=== PATIENT | female | born 1995 | race Caucasian/White ===

== ENCOUNTER 2016-09-01 15:01 | Emergency (ER) | payer BC ==
[2016-09-01 15:08] VITALS: BP 126/70
--- NOTE | 2016-09-01 15:31 | UC ---
Throat Pain/Nasal Miguelito HPI - HPI Summary HPI Summary: complaint of nasal congestion and cough for the last 3 weeks intermittent sore throat that has resolved sinus pressure that has worsened productive cough with green mucous intermittent headaches denies ear pain, fever and sore throat has resolved took some mucinex without relief - History of Current Complaint Chief Complaint: UCRespiratory Stated Complaint: SINUS COMPLAINT Time Seen by Provider: 09/01/16 15:24 Hx Obtained From: Patient Hx Last Menstrual Period: 08/10/15 - Allergies/Home Medications Allergies/Adverse Reactions: Allergies Allergy/AdvReac Type Severity Reaction Status Date / Time Cefaclor [From Ceclor] Allergy Intermediate Rash Verified 09/01/16 15:08 Cefixime [From Suprax] Allergy Intermediate Hives Verified 09/01/16 15:08 Sodium Benzoate [From Suprax] Allergy Intermediate Hives Verified 09/01/16 15:08 Home Medications: Home Medications Multiple Vitamin [Multivitamins] 1 cap PO DAILY 09/01/16 [History Confirmed 09/12] PMH/Surg Hx/FS Hx/Imm Hx Previously Healthy: Yes - Surgical History Surgical History: Yes Surgery Procedure, Year, and Place: ear tubes. wisdom teeth extracted - Family History Known Family History: Positive: None, Hypertension - father, Diabetes - father Negative: Cardiac Disease - Social History Occupation: Employed Full-time Lives: With Family Alcohol Use: None Substance Use Type: None Smoking Status (MU): Never Smoked Tobacco - Immunization History Most Recent Tetanus Shot: THINKS UP TO DATE Vaccination Up to Date: Yes Review of Systems Constitutional: Negative Skin: Negative Eyes: Negative ENT: Nasal Discharge Respiratory: Cough Cardiovascular: Negative Gastrointestinal: Negative Genitourinary: Negative Motor: Negative Neurovascular: Negative Musculoskeletal: Negative Neurological: Negative Psychological: Negative All Other Systems Reviewed And Are Negative: Yes Physical Exam Triage Information Reviewed: Yes Appearance: No Pain Distress, Well-Nourished Vital Signs: Initial Vital Signs Temp 99.2 F 09/01/16 15:06 Pulse 67 09/01/16 15:06 Resp 18 09/01/16 15:06 BP 126/70 09/01/16 15:06 Pulse Ox 100 09/01/16 15:06 Vital Signs Reviewed: Yes Eyes: Positive: Conjunctiva Clear ENT: Positive: Pharyngeal erythema, Nasal congestion, Nasal drainage, TM bulging , Other: - frontal and maxillary. Negative: TM red Respiratory: Positive: Lungs clear, Normal breath sounds, No respiratory distress, No accessory muscle use Cardiovascular: Positive: RRR, No Murmur, Pulses Normal Abdomen Description: Positive: Nontender, Soft Bowel Sounds: Positive: Present Musculoskeletal Exam: Normal Neurological: Positive: Alert Psychological Exam: Normal Skin Exam: Normal Throat Pain/Nasal Course/Dx - Course Course Of Treatment: exam completed. will treat with augmentin for sinusitis d/ t length of illness and sinus tenderness - Differential Dx/Diagnosis Differential Diagnosis/HQI/PQRI: Sinusitis, URI Provider Diagnoses: sinusitis Discharge - Discharge Plan Condition: Stable Disposition: HOME Prescriptions: Amoxicillin/Clavulanate TAB* [Augmentin TAB 875*] 875 mg PO BID #20 tab Patient Education Materials: Sinusitis (ED) Referrals: Isra Dominguez MD [Primary Care Provider] - Additional Instructions: Please start antibiotic as directed Increase fluids and rest Take acetaminophen or ibuprofen for fever or pain Please review your discharge instructions. If your symptoms do not improve please call your primary care provider or return to urgent care.
== END 2016-09-01 15:51 | disposition home or self-care (01) ==
LOC: UCEAST 15:01
DX: J32.9 Chronic sinusitis, unspecified (principal)
CPT/HCPCS: 99212; G0463

== ENCOUNTER 2018-08-31 08:41 | Emergency (ER) | payer BC ==
[2018-08-31 08:59] VITALS: BP 137/92
--- NOTE | 2018-08-31 10:03 | UC ---
Bite Injury/Animal HPI - HPI Summary HPI Summary: 23-year-old female presents with complaints of a dog bite to her right index finger that occurred just prior to arrival. States her dog and her boyfriend's dog were playing when her boyfriend's dogs tooth got caught in her dog's collar. When she had tried to separate them she was accidentally bit by her boyfriend started. Vaccinations for the dogs are up-to-date. Her last tetanus was September 2006. Bleeding was controlled prior to arrival. - History of Current Complaint Chief Complaint: UCBiteInjury Stated Complaint: DOG BITE Time Seen by Provider: 08/31/18 09:59 Hx Obtained From: Patient Hx Last Menstrual Period: 08/31/18 Pain Intensity: 6 - Allergies/Home Medications Allergies/Adverse Reactions: Allergies Allergy/AdvReac Type Severity Reaction Status Date / Time cefaclor [From Ceclor] Allergy Rash Verified 08/31/18 08:51 cefixime [From Suprax] Allergy Hives Verified 08/31/18 08:51 Home Medications: Home Medications Etonogest/Eth.estradiol (Nf) [Nuvaring Vaginal Ring] 1 each VAGINAL .SEE COMMENTS 08/31/18 [History Confirmed 08/31/18] PMH/Surg Hx/FS Hx/Imm Hx Previously Healthy: Yes - Denies significant PMH - Surgical History Surgical History: Yes Surgery Procedure, Year, and Place: ear tubes as a child. wisdom teeth extracted - Family History Known Family History: Positive: None, Hypertension - father, Diabetes - father Negative: Cardiac Disease - Social History Occupation: Student Lives: Dormitory/Roommates Alcohol Use: None Substance Use Type: None Smoking Status (MU): Never Smoked Tobacco - Immunization History Most Recent Tetanus Shot: 09/2006 Vaccination Up to Date: Yes Review of Systems All Other Systems Reviewed And Are Negative: Yes Constitutional: Negative: Fever, Chills Skin: Positive: Other - See HPI Respiratory: Positive: Negative Cardiovascular: Positive: Negative Gastrointestinal: Positive: Negative Genitourinary: Positive: Negative Neurological: Positive: Negative Is Patient Immunocompromised?: No Physical Exam - Summary Physical Exam Summary: GENERAL APPEARANCE: Well developed, well nourished, alert and cooperative, and appears to be in no acute distress. CARDIAC: Normal S1 and S2. No S3, S4 or murmurs. Rhythm is regular. There is no peripheral edema, cyanosis or pallor. Extremities are warm and well perfused. Capillary refill is less than 2 seconds. Peripheral pulses intact. LUNGS: Clear to auscultation without rales, rhonchi, wheezing or diminished breath sounds. ABDOMEN: Positive bowel sounds. Soft, nondistended, nontender. No guarding or rebound. No masses or hepatosplenomegally. MUSKULOSKELETAL: Normal muscular development. Normal gait. EXTREMITIES: Superficial puncture puncture wounds to the anterior and posterior aspect of the DIP of the right index finger. Bleeding controlled. No FB observed. Mild tenderness and edema. ROM diminished due to edema. Patient reports some decreased sensation to the distal finger. Circulation intact. SKIN: Skin normal color, texture and turgor. Triage Information Reviewed: Yes Vital Signs: Initial Vital Signs Temp 98.6 F 08/31/18 08:52 Pulse 83 08/31/18 08:52 Resp 18 08/31/18 08:52 BP 137/92 08/31/18 08:52 Pulse Ox 99 08/31/18 08:52 Vital Signs Reviewed: Yes Diagnostics - Radiology No standard instances Radiology Interpretation Completed By: Radiologist Summary of Radiographic Findings: Order Information: FINGER RIGHT 2ND (INDEX). Accession Number: [id number]. CPT: 79868. INDICATION: Right second finger animal bite. TECHNIQUE: 3 views of the right second finger were obtained. FINDINGS: There is soft tissue swelling which is most prominent at the distal interphalangeal joint. The bones are normal alignment. No fracture is seen. No radiopaque foreign body is seen. Joint spaces appear maintained. IMPRESSION: SOFT TISSUE SWELLING, NO FRACTURE OR RADIOPAQUE FOREIGN BODY IS SEEN. Bite Injury Course/Dx - Course Course Of Treatment: 23-year-old female presents with complaints of a dog bite to her right index finger that occurred just prior to arrival. States her dog and her boyfriend's dog were playing when her boyfriend's dogs tooth got caught in her dog's collar. When she had tried to separate them she was accidentally bit by her boyfriend started. Vaccinations for the dogs are up-to-date. Her last tetanus was September 2006. Bleeding was controlled prior to arrival. Afebrile. Mildly elevated blood pressure at Hospital signs stable. Patient was noted to have superficial puncture puncture wounds to the anterior and posterior aspect of the DIP of the right index finger. Bleeding controlled. No FB observed. Mild tenderness and edema. ROM diminished due to edema. Patient reports some decreased sensation to the distal finger. Circulation intact. The wounds were copiously irrigated with tap water. An x-ray was obtained and showed no fracture or foreign body. Discussed with the patient that her puncture wounds did not require repair and should heal well. Her wounds were dressed and she was placed in a finger splint by the RN. Circulation and sensation were unchanged from previous exam after application. Her tetanus was updated. Because of the location of the bite injury I'm going to place her on Augmentin 875 mg twice a day 5 days for infection prophylaxis. Due to her reports of decreased sensation as well as the location of the bite I'm recommending that she follow-up with hand surgery within 7 days for a recheck of her wound. Anticipatory guidance and warning symptoms are reviewed with the patient. Verbalizes understanding and agrees with plan of care. - Differential Dx/Diagnosis Differential Diagnosis/HQI/PQRI: Crush Injury, Laceration, Puncture, Rabies Exposure Provider Diagnosis: Dog bite of index finger Discharge - Sign-Out/Discharge Documenting (check all that apply): Patient Departure All imaging exams completed and their final reports reviewed: No Studies - Discharge Plan Condition: Stable Disposition: HOME Prescriptions: Amoxicillin/Clavulanate TAB* [Augmentin TAB 875*] 875 mg PO BID #10 tab Patient Education Materials: Animal Bite (ED) Referrals: Isra Dominguez MD [Primary Care Provider] - Sera Mcgill MD [Medical Doctor] - 7 Days Additional Instructions: The x-ray performed in the clinic today showed no fracture or foreign body. We will start you on an antibiotic to help prevent infection. Start Augmentin 875 mg 1 tab twice a day for 5 days. Clean with mild soap and water at least twice a day. Apply a small amount of antibiotic ointment to the wounds and cover with a bandage. Wear the splint that was applied to the finger the next few days for comfort and support. Take acetaminophen (Tylenol) or ibuprofen (Advil, Motrin) according to directions as needed for pain. Follow-up with the hand surgeon within 7 days for recheck of your injury. Call today to make an appointment. We updated your tetanus today. Be sure to contact her primary care provider so that they can update your records. Your blood pressure was also slightly elevated in the clinic today and should be rechecked by your very care provider at some point. Seek immediate medical attention in the emergency room if you develop fever greater than 100.5 F, have severe pain that is not managed with the pain medication, have redness that spreads, get a red streak up her arm, you have increased swelling of the finger, or pus draining from the wounds. - Billing Disposition and Condition Condition: STABLE Disposition: Home
[2018-08-31] MEDS ORDERED: Tetan/Diph/Pertus SYR(Tdap)* 0.5 ML SYR(BOOSTRIX) use SYR IM ONE (10:30)
== END 2018-08-31 10:47 | disposition home or self-care (01) ==
LOC: UCEAST 08:41
DX: S61.250A Open bite of right index finger without damage to nail, initial encounter (principal); W54.0XXA Bitten by dog, initial encounter; Y93.89 Activity, other specified; Z88.8 Allergy status to other drugs, medicaments and biological substances
CPT/HCPCS: 73140; 90471; 90715; 99212; G0463